=== PATIENT | female | born 1950 | race African-American/Black ===

== ENCOUNTER 2020-07-17 22:04 | Inpatient (IN) | payer BC, OTHER ==
[~2020-07-17] VITALS: Ht 170.2 cm; Wt 95.8 kg
[2020-07-17 22:07] VITALS: BP 178/94
[2020-07-17 22:24] LABS: URINE BILIRUBIN NEGATIVE (Negative); URINE BLOOD NEGATIVE (Negative); URINE CLARITY SL CLOUDY; URINE COLOR YELLOW; URINE GLUCOSE-RANDOM* NEGATIVE (Negative); URINE KETONES NEGATIVE (Negative); URINE NITRITE-REFLEX NEGATIVE (Negative); URINE PROTEIN (DIPSTICK) NEGATIVE (Negative); URINE SPECIFIC GRAVITY <= 1.005 (1.005-1.035); URINE UROBILINOGEN 0.2 E.U./dl (0.2-1.0)
[2020-07-17 22:25] LABS: URINE LEUKOCYTES-REFLEX 1+ (Negative)
[2020-07-17 22:41] LABS: BACTERIA-REFLEX 1-9 Few /HPF (None Seen); CASTS None Seen /LPF (None Seen); CRYSTALS None Seen /LPF (None Seen); MUCUS 0-3 Light strn/LPF (None Seen); SQUAMOUS >10 Many /LPF (0-3); URINE RBC 0-2 Rare /HPF (0-2); URINE WBC-REFLEX 0-5 Rare /HPF (0-5)
[2020-07-18 02:48] VITALS: BP 178/94
[2020-07-18 03:22] VITALS: BP 146/95
--- NOTE | 2020-07-18 03:57 | NUR ---
Assumed care of pt as transfer from ED @ 0230. Pt calm et cooperative this shift. Pt to be involuntary et is positive for COVID. VSWNL. Health assessment with no abnormalities noted at present time. Pt very confused et acts like she cannot stand or do anything for herself. ED reports that pt capable of standing but it was reported that she fell et was on the floor of her home for three days. Pt came to our ED via [facility] ED via pt's home. Pt was accompanied by her daughter at [facility] who also filled out one of the affidavits for the involuntary admission. Calls placed to providers seasoner hand et orders obtained. Pt is currently resting in bed with eyes open. Will continue to monitor per unit protocol.
--- NOTE | 2020-07-18 07:03 | EKG ---
[facility] [place] [address] ELECTROCARDIOGRAM REPORT Name: GENTRY MACHADO Room #: 221-P ADM IN M.R.#: [id number] Admission: 07/18/20 Attend Phys: Artur Kingston DO Discharge: Date of : 52 Report #: [id number] THIS REPORT FOR: cc: Yousif Sewell MD, MD, MD [facility] ~ THIS REPORT FOR: //name// [facility] ED Test Date: 2020-07-17 Test Time: 22:41:18 Pat Name: GENTRY MACHADO Department: Room: 221 Gender: F Heat Treat Operator: [facility] : 1950 Requested By: Krishan Lima Order Number: [id number] MD: Yousif Thompson Measurements Intervals [place] Rate: 107 P: 45 NC: 165 QRS: 27 QRSD: 88 T: 9 QT: 371 QTc: 495 Interpretive Statements Sinus tachycardia Probable left atrial enlargement Left ventricular hypertrophy Borderline T abnormalities, anterior leads Borderline prolonged QT interval Compared to ECG 06/09/2007 16:15:16 T-wave abnormality now present Sinus rhythm no longer present Electronically Signed On 07-18-2020 7:02:54 CUT OFF SAW OPERATOR METAL by Yousif Thompson [email or web address] <ELECTRONICALLY SIGNED> By: Yousif Thompson MD, FACC 07/18/20 0702 40 40 Yousif Thompson MD, FAC /EPI
[2020-07-18 07:30] VITALS: BP 151/88
[2020-07-18 10:48] LABS: ABSOLUTE NEUTROPHILS 6.4 thou/uL (1.4-8.2); BASOPHILS 0.4 % (0.0-2.0); EOSINOPHILS 3.2 % (0.0-3.0); HEMATOCRIT 35.7 % (37.0-47.0); HEMOGLOBIN 11.4 gm/dL (12.0-15.0); LYMPHOCYTES 12.9 % (24.0-44.0); MCV 81.1 fL (80.0-100.0); MONOCYTES 10.9 % (1.0-8.0); PLATELET COUNT 400 thou/uL (150-400); POLYS 72.6 % (36.0-66.0); RDW 16.5 % (10.5-14.5); WBC 8.8 thou/uL (4.0-11.0)
[2020-07-18 10:58] LABS: CALCIUM 9.5 mg/dL (8.5-10.1); CREATININE 0.8 mg/dL (0.6-1.0); POTASSIUM 3.1 mmol/L (3.5-5.1)
[2020-07-18 11:04] LABS: ALBUMIN 2.8 g/dL (3.4-5.0); TOTAL BILIRUBIN 0.4 mg/dL (0.2-1.0); TOTAL PROTEIN 7.1 g/dL (6.4-8.2)
[2020-07-18] MEDS ORDERED: CARVEDILOL3.125 MG PO (11:24)
[2020-07-18] MEDS ORDERED: METHOTREXATE 22.5 M1 PO (11:24)
[2020-07-18] MEDS ORDERED: FOLIC ACID1 MG PO (11:24)
[2020-07-18 16:55] VITALS: BP 122/73
--- NOTE | 2020-07-18 18:35 | NUR ---
Alert and orientated X4. Anxious at times r/t COVID dx. Denies SI/HI. Multiple concerns r/t meds and wanting to speak with her doctor. Calm, compliant, taking meds whole. Breath sounds clear t/o, bilaterally equal. Reg HR auscultated. Color pink with brisk capillary refill and palpable peripheral pulses. Up to bedpan and toilet with assistance. Very slow irregular gait, scared to sit on toilet stating it is too low. Daughter called this AM wanting update, pt. here on 96 hr hold. Daughter did not have privacy code, upset. Offered to have pt. call her. Privacy code given late in day. Pt. states she is having mouth pain d/t dentures, tylenol given with good results.
[2020-07-18 19:29] VITALS: BP 128/65
--- NOTE | 2020-07-19 06:33 | NUR ---
NOTED WITH CONFUSION. REFUSED MEDS. R/B EXPLAINED BUT STILL REFUSED. VSS. NO S/S ACUTE DISTRESS NOTED OR REPORTED AT THIS TIME.
[2020-07-19 07:58] VITALS: BP 133/79
--- NOTE | 2020-07-19 16:28 | H ---
[facility] [place] [address] HISTORY AND PHYSICAL Name: GENTRY MACHADO Room #: 221-P ADM IN M.R.#: [id number] Admission: 07/18/20 Attend Phys: Artur Kingston DO Discharge: Date of : 52 Report #: [id number] THIS REPORT FOR: cc: Artur Nelson MD, MD, DO ~ CC: Artur Campbell DATE OF SERVICE: 07/18/2020 INPATIENT PSYCHIATRIC EVALUATION ATTENDING PSYCHIATRIST: Artur Kingston DO. CUSTODIAL SUPERVISOR: Lima Barclay MD. REASON FOR ADMISSION: Concern for la, inability to care for self. SOURCES OF INFORMATION: Interview with the patient. Telephone call with her daughterSaskia, chart review, records from [facility]. HISTORY OF PRESENT ILLNESS: This is a 70-year-old black female. The patient has obvious symptoms of longstanding rheumatism including disfigured left upper extremity digits. The patient reports she is hungry. I helped feed her a bit, cut off her foods and she was able to take over. She reports Dr. Ben Campbell is her primary care physician. She states in the past, she has seen Dr. Dempsey, who is her psychiatrist, but not currently. She evidently works at the [email or web address] and has recently been working from home. Her daughter who called in is concerned about her both not taking psychiatric medications, not taking medications for rheumatoid arthritis. She reportedly takes methotrexate weekly for rheumatism, also recently had a UTI. She said she did not take the methotrexate while on that. In addition, the patient reports to me she used to take 5 mg of medication, when I said that were Abilify she said yes and she has not filled any psych meds in the last several months. So I have reason to believe that with her COVID-19 infection that she was sent to the SICU for. She has la at present. EKG reviewed, QTC 495, QT 371, VT interval 165 milliseconds, ventricular rate 107, sinus tachycardia. She has some LVH. PAST SURGICAL HISTORY: Fairly extensive left foot surgery 2004, hip replacement x 4, 2 on each in 1974, 1995, 1997 and 1999, total knee replacement, bilateral 1986 and 1993, fracture of leg at 11 years, surgery in 1960, cholecystectomy in 1980. [address] [address] HISTORY AND PHYSICAL Name: GENTRY MACHADO Room #: 221-P [facility] IN M.R.#: [id number] Admission: 07/18/20 Attend Phys: Artur Kingston DO Discharge: Date of : 52 Report #: [id number] PAST MEDICAL HISTORY: Rheumatoid arthritis all joints, rheumatic fever at 11 months old, iron lung for 6 months. It looks like there was a replaced hip 1995. Also, right foot surgery 1999, chronic venous insufficiency, chronic rotator cuff tear on the left. ALLERGIES: PENICILLIN AND REMICADE. SOCIAL HISTORY: No smoking, recreational drug use history. REVIEW OF SYSTEMS: CONSTITUTIONAL: Denies fever, chills, malaise, unexplained weight change. EYES: Denies eye pain, visual change or discharge. HENT: Denies hearing changes, ear drainage, ear infections, ear pain, neck pain or stiffness. RESPIRATORY: Denies cough, shortness of breath, hemoptysis or respiratory distress. CARDIOVASCULAR: Denies chest pain, chest pain with exertion or edema. GASTROINTESTINAL: Denies abdominal pain, nausea, vomiting or diarrhea. GENITOURINARY: Denies burning, frequency or dysuria. MUSCULOSKELETAL: Denies back pain, joint pain, muscle weakness or myalgias. SKIN: Denies rash. NEUROLOGIC: Denies weakness, headache or loss of consciousness. Weight 96.62 kilos. LABORATORY DATA: Reviewed. Urinalysis on 07/17/2020 was 1+ leukocyte esterase, greater than 10 epithelial cells, few bacteria, no mucus. I believe there are some labs from [facility] I need to review. She was COVID positive in the ER. Other laboratories from the ER include Hematocrit 35.7, white count 8.8, platelet count 400. Chemistry: Sodium 143, potassium 3.1, chloride 105, bicarbonate 26, anion gap 12, BUN 8, creatinine 0.8, estimated GFR 86, glucose 148, calcium 9.5, total bilirubin 0.4, AST 31, ALT 25, alkaline phosphatase 101, total protein 7.1,. COVID-19 serology was positive by PCR. She is definitely a high school graduate, I am not sure level of college education. She reports working for the [employer] a long time. I am not sure if she is or , but the vp digital marketing social media and crm will clarify that. PHYSICAL EXAMINATION: VITAL SIGNS: Temperature 36.9, pulse 79, respirations 20, BP 122/72, O2 sat 97%. MUSCULOSKELETAL: Seen in bed, so gait not tested, disfigured upper extremity digits, difficulty holding a fork. MENTAL STATUS EXAMINATION: This is a well-developed, unkempt black female, appearing nearly stated age. Attention fair. Concentration limited. Speech pushed. Thought process: Linear and goal directed. Thought content, number of [facility] [address] [place] [address] HISTORY AND PHYSICAL Name: GENTRY MACHADO Room #: 221-P ADM IN [facility]#: [id number] Admission: 07/18/20 Attend Phys: Artur Kingston DO Discharge: Date of : 52 Report #: [id number] topics focused on doctors, medication and her doctors. Denied SI, HI. Denied auditory, visual, or tactile hallucinations. Memory not formally tested. Insight limited. Judgment limited. Fund of knowledge, no greater than average. FORMULATION: A 70-year-old black female admitted for la, determined to be COVID-19 positive, so she will need enhanced isolation. DIAGNOSES: At this time, bipolar disorder, most recent episode manic, COVID-19 positive, rheumatoid arthritis, hyperlipidemia, hypertension. PLAN: Evaluate, stabilize, obtain collateral. Start Haldol 0.5 mg p.o. 3 times a day for la control. Agree with continuing folic acid and methotrexate therapy. ESTIMATED LENGTH OF STAY: 10-14 days. STRENGTHS: She is insured, family support. WEAKNESSES: Multiple morbidities. COVID-19 infection. BMI 33.1 <ELECTRONICALLY SIGNED> By: Artur Kingston DO 07/19/20 1628 1703 [id number] Artur Kingston DO /nt
[2020-07-19 16:54] VITALS: BP 151/89
--- NOTE | 2020-07-19 18:16 | NUR ---
LABILE MOOD NOTED THROUGHOUT SHIFT-WITH INCREASING LEVELS OF AGITATION,PARANOIA AFTER APPROX 1430. INITIALLY THIS AM NOTED TO BE HYPERVERBAL,SPEECH PRESSURED-CIRCUMSTANTIAL. DEMANDING AT TIMES BUT OVERALL PLEASANT-LATER IN PM ACCUSING NURSE OF "PUTTING SOMETHING IN MY FOOD-IT DOESN'T LOOK RIGHT OR TAST RIGHT AND I CAN TELL IT HAS BEEN BROUGHT IN" HAS BEEN COMPLAINTIVE REGARDING NOT BEING ABLE TO CHANGE CHANNELS ON TV-WHEN NEW REMOTE WAS OBTAINED AND FIXED WAS INITALLY HAPPY-EXPRESSING APPRECIATION TO NURSE BUT LATER IN PM STATES "I WANT THE OLD BROKEN ONE BACK YOU PROBABLY DID SOMETHING TO THIS" IS ORIENTED X3 ABLE TO ID DATE,TIME,AND AWARE SHE IS AT HOSPITAL AND NAME OF HOSPITAL. COMLIENT WITH ALL MEDICATIONS WITH THE EXCEPTION OF HALDOL STATING "I DON'T NEED THAT THERE ISN'T ANYTHING WRONG WITH MY MIND" TAKES PO FLUIDS WELL-APPETITE GOOD WITH EXCEPTION OF PM WHICH SHE REFUSED BELIEVING IT WAS "ALTERED"LUNGS SLIGHTLY DIMINSHED IN BASES-NO COUGH NOTED OR REPORTED. AFEBRILE.SMALL BM AND MULTIPLE VOIDS VIA BEDPAN-URINE CLEAR YELLOW-NO EPISODES OF INCONTINENCE THIS SHIFT. BP AT 1700 PRIOR TO SCHEDULED COREG MILDLY ELEVATED AT 148/84 APPEARS TO BE RELATED TO INCREASED AGITATION,PARANOIA DENIES ANY PAIN OR DISCOMFORT AT THIS TIME. REFUSES TO GET UP TO COMMODE OR GERICHAIR STATING "TO WEAK" BUT DOES ROLL SIDE TO SIDE IN BED AND REPOSITIONS SELF ON SIDE RELUCTANTLY WITH VERBAL QUEING. DENIES SI/HI BUT DOES STATE "IF I SAW MY DAUGHTER RIGHT NOW I DON'T KNOW WHAT I WOULD DO"
[2020-07-19 20:24] VITALS: BP 145/75
--- NOTE | 2020-07-20 05:26 | NUR ---
Assumed care of patient this pm shift. Patient alert and oriented x3-4. Patient in good spirits. Hyperverbal. Takes medications whole with thin fluids. Denies hi/si. States she has pain in her mouth. Tylenol given. Patient is a high falls risk. Falls precautions in place. Assessment shows no signs of acute distress. Patient believes that she has ordered several miscellanious items from the hospital including wipes. Became irritable with staff and would not let us change her wet bedding. We will continue to monitor per hospital policy.
--- NOTE | 2020-07-20 18:30 | NUR ---
Assumed care at shift change, alert and oriented x3-4 and forgetful. VSS and afebrile. Refused to change position through out the day, and agree on getting her cleaned. Paient is incontinent of B&B, cleaned and instructed patient to keep external femal cath inplace. Assessment as documented and will continue with POC.
--- NOTE | 2020-07-20 20:54 | NUR ---
Assumed care on 07/20/20 @ 19:30, in bed, reports that she does not like to walk to the toilet because she is a high fall risk. When asked if she can walk, she says she was told never to walk b/c of (shows her fall risk bracelet) and says she wants to use a bed dc to toilet. Reports is tired, and has pain in her mouth. HRRR, Lungs Diminished but clear on room air. ABD N with x2bm today. Takes meds whole with room temp water. Will continue to monitor as per Senior Behavior Protocol for safety and comfort.
[2020-07-21 04:56] VITALS: BP 117/57
[2020-07-21 05:50] LABS: CALCIUM 9.2 mg/dL (8.5-10.1); CREATININE 0.6 mg/dL (0.6-1.0); POTASSIUM 3.5 mmol/L (3.5-5.1)
[2020-07-21 15:25] VITALS: BP 141/82
--- NOTE | 2020-07-21 15:36 | NUR ---
ASTRONOMY INSTRUCTOR attempt x2 to call patient's in room phone to complete recreation therapy assessment. No success.
--- NOTE | 2020-07-21 19:41 | NUR ---
LABILE MOOD THIS SHIFT-IRRITABLE AND DEMANDING AT TIMES-REFUSED AM HALDOL BUT DID TAKE 1500 DOSE AFTER BEING INFORMED WOULD RECEIVE IM IF PO REFUSED. LUNG SOUNDS [id number] COUGH NOTED OR REPORTED-DOES HAVE RASPY VOICE-HOARSE BUT DENIES THROAT PAIN/DISCOMFORT. DOES REPORT MOUTH PAIN RATED A 5 ON 1-10 SCALE-TYLENOL 650MG PO PRN PER ORDER WITH VERBALIZED GOOD RELIEF. APPETITE GOOD-VOIDING PER COMMODE WITH ASSIST OF 2-3 OR VIA BEDPAN. ORIENTED X3. SMALL BM PER COMMODE-O2 SAT 99 PERCENT ON RA
--- NOTE | 2020-07-22 02:45 | NUR ---
07-21-20 CARE TRANSFERRED 1899. PT AAO4, VSS, RR EVEN AND NONLABORED ON RA. PT REPORTS PAIN IN MOUTH. PT WAS COMBATIVE DURING MEDICATION ADMIN, BUT LATER COMPLIANT WITH ALL MEDICATION. PT PAIN HAS BEEN MANAGED WITH PO MEDICATION. PT DENIES SI/HI. CATH IN PLACE URINE LIGHT YELLOW, NO SEDIMENT AND ZERO FOUL ODOR, 800ML EMPTY. ZERO S/S OF ACUTE DISTRESS, PT WILL CONTINUE TO BE MONITOR.
[2020-07-22 07:28] VITALS: BP 123/78
[2020-07-22 20:06] VITALS: BP 135/71
--- NOTE | 2020-07-23 06:12 | NUR ---
ASSUMED PT'S CARE THIS PM SHIFT. ALERT AND ORIENTED. CONFUSED. PT WAS CALM AND COOPERATIVE WITH CARE. TOOK MEDS WHOLE. BEDPAN FOR VOIDING AND BM. NO BM NOTED TODAY. THINKS SHE'S GOING HOME TODAY. ON 96 HR HOLD TILL 07/25/20. CALL LIGHT WITHIN REACH. HOURLY ROUNDINGS MADE. WILL CONTINUE TO MONITOR.
--- NOTE | 2020-07-23 09:24 | NUR ---
RECEIVED ORDERS FOR OT EVAL AND TREAT ALONG WITH MIRI EVALUATION. DUE TO PT. IN ENHANCED ISOLATION FOR COVID +, WILL NOT BE ABLE TO CARRY OUT FORMAL MIRI EVLAUATION AT THIS TIME. IF ISOLATION IS DISCONTINUED WHILE PT. IS ADMITTED, REQUEST NEW ORDERS FOR MIRI EVALUATION. PLEASE SEE OT EVALUATION, BRIEF, FOR INFORMATION REGARDING FUNCTIONAL COGNITION. OT WILL D/C ORDER FOR MIRI.
[2020-07-23 10:03] VITALS: BP 127/80
[2020-07-23 13:06] VITALS: BP 127/80
--- NOTE | 2020-07-23 13:41 | NUR ---
[facility], PATIENT IN ROOM AWAKE QUIET. PATIENT ATE BREAKFAST TOOK MEDCATION WITHOUT INCIDENCE, PATIENTS ABDOMEN SOFT ROUND. BOWEL SOUNDS PRESENT LUNGS CLEAR PATIENT DENIES SI/HI/AH/VH AT PRESENT. PATIENT IS INDEPENDENT WITH EATING DRINKING AND TRIES TO CLEAN SELF WITH WIPES. SHE WAS SOMEWHAT IRITABLE WHEN DYNAMOTOR REPAIRER WAS CLEANING HER UP AND COMPLAINED WE DID NOT KNOW HER MEDICAL ISSUES. PATIENT LATER CALMED DOWN WILL CONTINUE TO MONITOR PATIENT FOR SAFETY AND BEHAVIORS.
--- NOTE | 2020-07-23 17:26 | NUR ---
OTTONIEL and Dr. Andrews participated in an phone call with the Pt's daughter, emory [phone]. Emory was given and update and informed the Pt is not willing to complete a DPOA. Emory was educated about guardianship. Emory was informed that the Pt would benefit from the family pursuing if Pt is unwilling to assign a DPOA. Dr. Martinez did inform of his recommendation for LTC placement. Skilled placement was also discussed. OTTONIEL will continue to follow. OTTONIEL will send out referrals for custodial, if unable to get a skilled placement Pt will return home with home health services.
[2020-07-23 21:04] VITALS: BP 133/70
[2020-07-23 21:08] VITALS: BP 133/70
--- NOTE | 2020-07-24 05:51 | NUR ---
ASSUMED PT'S CARE @ 1900. PT ALERT AND ORIENTED. SOME CONFUSION. PT WAS CALM AND COOEPRATIVE WITH CARE. TOOK MEDS GIVEN. PRN TYLENOL GIVEN PER PT'S REQUEST FOR OVERALL JOINT PAIN. PT WAS BOTH CONTINENT AND INCONTINENT OF BLADDER THIS SHIFT. PT'S SISTER ANTHONY CALLED TO SPEAK WITH, PT SLEEP AT THAT TIME. MS CRUZ VOICED SHE'LL CALL BACK IN THE AM. FALL PRECAUTION IN PLACE. CALL LIGHT WITHIN REACH. WILL CONTINUE TO MONITOR.
[2020-07-24 07:51] VITALS: BP 144/59
--- NOTE | 2020-07-24 17:50 | NUR ---
SW [facility] [phone] [facility] [phone] [place] [phone] [facility] [phone] [facility] [phone]
[2020-07-24 19:55] VITALS: BP 99/62
--- NOTE | 2020-07-25 04:58 | NUR ---
ASSUMED PT'S CARE AT ABOUT 1900. ALERT AND ORIENTED. SOME CONFUSION AND DELUSION. PT WAS CALM AND COOPERATIVE. SEEMED HAPPY, TALKING ABOUT GOING HOME TODAY. PER CM NOTE, REFERALS HAVE BEEN FAXED, NOTE HOWEVER DID NOT INDICATE ANY ACCEPTANCE YET. FALL RECAUTION IN PLACE. CALL LIGHT WITHIN REACH. WILL CONTINUE TO MONITOR.
[2020-07-25 07:27] VITALS: BP 124/58
--- NOTE | 2020-07-25 10:04 | NUR ---
Care assumed of patient at 0800: Patient sitting in bed at start of shift. Patient alert and oriented x3. Denies SI/HI/AH/VH. Patient reports that she is happy because she is going home today. Reports pain to bilateral hands and requested PRN Ibuprofen, declined PRN Tylenol. Took medication whole without difficulty. Patient calm and cooperative. Currently working with OTTONIEL on [employer] paperwork.
--- NOTE | 2020-07-25 10:55 | NUR ---
Pt scored 17/30 on the SLUMS
--- NOTE | 2020-07-25 12:30 | NUR ---
OTTONIEL sent referral to the following [facility] [phone] [facility] [phone]
--- NOTE | 2020-07-25 12:52 | NUR ---
Pt completed DPOA paperwork. SW emailed a copy to the Pt's DPOA document and enactement letter to Nina Lindquist at [email or web address] OTTONIEL also filed a copy in the the Pt's chart
--- NOTE | 2020-07-25 15:52 | NUR ---
DENIES PAIN/DISCOMFORT DURING AM ASSESSMENT-LATER REQUESTED PRN IBUFROFEN FOR RIGHT HIP PAIN-IBUPROFEN 600MG GIVEN PO PRN WITH VERBALIZED GOOD RESULTS. APPETITE GOOD. VOIDING PER BEDPAN. DID WORK WITH OCCUPATIONAL THERAPY ON ADLS. COMPLIENT WITH MEDS.NO COUGH,AFEBRILE-LUNGS CLEAR. NO SKIN BREAKDOWN. VS STABLE-O2 SATS 98 PERCENT ON RA.
--- NOTE | 2020-07-25 17:03 | NUR ---
OTTONIEL spoke with Shar at [facility]. She infomed they did not have beds today but may have a bed on Tuesday. OTTONIEL will follow up on Tuesday
[2020-07-25 20:04] VITALS: BP 124/57
--- NOTE | 2020-07-26 01:46 | NUR ---
ASSESSMENT: PT REMAIN ALERT AND ORIENT TIMES THREE. FORGETFUL AT TIMES. C/O HAND JOINT PAIN, PRN PAIN MEDS GIVEN. ABLE TO TURN SELF IN BED. USE OF BEDPAN FOR URINATION. NO BM THUS FAR. VSS, AFEBRILE. SLOW PROGRESS TOWARDS DC GOALS, WILL CONTINUE TO MONITOR.
[2020-07-26 07:55] VITALS: BP 134/82
[2020-07-26 08:00] VITALS: BP 134/82
--- NOTE | 2020-07-26 09:20 | NUR ---
PT WATCHING TV IN ROOM. PT SAYS HAPPY TUESDAY AND GREATFUL TO BE ALIVE. PT HAS GOOD SPIRITS THIS AM. PT LUNGS CLEAR WITH NON-PRODUCTIVE COUGH. PT USED BED QUIGLEY TO VOID. PT REFUSED TO USE BSC. PT STATED SHE IS GETTING STRONGER. PT NEEDING HELP WITH OPENING ITEMS ON HER TRAY AND PUTTING STRAWS INTO DRINKS. SHE HAS CRIPPLED HANDS DUE TO RA. PT ALSO STATED SHE HAS HX OF POLIO ALSO. PT ABLE TO TURN IN BED WITHOUT ANY ASSISTANCE. PT STATED SHE HAS A SORE INSIDE MOUTH FROM DENTURES. PT SHOWED THIS GUARDIAN AD LITEM HER SORE AT FRONT OF GUM. PT ALSO DRINKS WARM WATER NOT COLD DUE TO HER SORE. PT STATED SHE WANTS TO GO HOME TODAY AND THE DRHilda SAID SHE COULD GO. PT LBM 07/25. PT TOOK MEDS WHOLE, JUST WANTED TO KNOW WHAT EACH ONE WAS. PT STATED SHE TAKES 1000MG OF FOLIC ACID A DAY, AND HALDOL EVERY 6 HRS. SHE HAS HALDOL SCHEDUALED BID NOT EVERY 6 HRS. SHE SAYS SHE TAKES ONLY ONE PILL OF HALDOL. TOLD PT THAT ITS BID AND ITS 2MG TWICE A DAY. SHE UNDERSTOOD JUST CONFUSED ABOUT DOSES OF MEDS.
--- NOTE | 2020-07-26 09:30 | NUR ---
PT GETTING LOVINOX SQ FOR DVT PROFILACTIC PT STATED IF SHE TAKES THE HALDOL WHY DOES SHE GET A SHOT. HAD TO EXPLAIN THAT SHE IS GETTING IT TO PREVENT BLOOD CLOTS.
--- NOTE | 2020-07-26 12:19 | NUR ---
SW sent referrals to the following: [facility] [phone] [facility] [place] [phone] [place] [facility] [phone] [facility] [address] [phone]
--- NOTE | 2020-07-26 14:32 | NUR ---
ADM TYLENOL 325MG 2 TABS PO FOR PAIN TO HANDS OF PLUS 10. PT TOOK MEDS WHOLE IN WARM WATER DUE TO HER SORE ON HER GUM. PT COMBING HAIR WITH BRUSH. PT STATED SHE IS GOING TO A FACILITY FOR REHAB FOR 2 WEEKS. PT STATED SHE HAS POLIO AND RA. SHE STATED SHE WAS BORN WITH RA. SHE SAID SHE HAS A 51 YEAR OLD DTR, GRANDAUGHTER AND 5 YR OLD GREAT-GRANDCHILD. SHE WANTED TO BE LEFT ALONE AFTER SHE TALKED TO THIS SENIOR DATABASE ENGINEER ABOUT HER PERSONAL HEALTH ISSUES.
[2020-07-26 16:34] VITALS: BP 131/110
[2020-07-26 20:20] VITALS: BP 124/64
--- NOTE | 2020-07-27 04:07 | NUR ---
ASSESSMENT: PT REMAIN ALERT AND ORIENT TIMES THREE. PRN PAIN MEDS GIVEN FOR RODDY ARM AND HAND PAIN. REMAINS IN ENHANCED PREC FOR POSITIVE COVID. TOLERATING RA. VSS, AFEBRILE. PT URINATED PER BED QUIGLEY. DID REQUEST A BRIEF BUT WITH BRIEF ON PT WOULD URINATE SEVERAL TIMES BEFORE RINGING OUT FOR ASSISTANCE. THE BRIEF WAS TAKEN AWAY TO THE RISK OF SKIN BREAK DOWN. SLOW PROGRESS TOWARDS DC GOALS, WILL CONTINUE TO MONITOR.
[2020-07-27 09:25] VITALS: BP 134/60
--- NOTE | 2020-07-27 15:20 | NUR ---
OTTONIEL sent referrals to the following: [facility] [phone] [place] [phone] [facility] [phone] [facility] [phone]
--- NOTE | 2020-07-27 17:27 | NUR ---
PT IS AOX3-4, FORGERFUL AT TIMES. VSS, PT'S PAIN IS CONTROLLED WITH OTC PAIN ANALGESIC. PT REMAINS ON COVID 19 PRECAUTIONS. INCONTINENT OF B&B, USED BEDPAN. PT CALLS APPROPRIATELY, CALL LIGHT IN REACH, WILL CONTINUE TO MONITOR.
[2020-07-27 19:59] VITALS: BP 123/67
--- NOTE | 2020-07-28 04:48 | NUR ---
A&Ox2 Confusion noted. Preocupation with dentures noted. Reports pain in mouth secondary to dentures. Pain in hands as well as joint deformity noted. Takes meds whole with warm water, however questions each medication and what dose she took the day before. Pain meds provided as needed for hands and mouth pain. Positive for Covid-19. Heavy wetter, incontinent of bladder, incontinent care provided with complete change of sheets repeatadly. Not aware of the time of night, and at 0300 says that her children will be calling. Reoriented to time of night, and Continues to insist that a call is comming any minute. Will continue to monitor for safety and comfort.
[2020-07-28 07:56] VITALS: BP 140/78
--- NOTE | 2020-07-28 13:00 | NUR ---
Assess due to length of stay. Admitted for SBH, COVID+. Hx bipolar disorder with la. Pt eating 100% of meals consistently. BMI 33. Consider low nutrition risk.
--- NOTE | 2020-07-28 18:31 | NUR ---
ASSUMD CARE AT CHANGE OF SHIFT. RECENT FALL AT HOME.ALERT X3-4, FORGETFUL. REPORTS HER DENTURES GIVE HER MOUTH SORES. DENIES SOB, DENIES CHEST PAIN, HEAVY WETTER. NO BM NOTED AT THIS TIME. TAKES MEDIATION WHOLE. FALL PRECAUTIONS IN PLACE. DEFORMED HAND JOINTS. SET UP FOR MEALS. CALLS FOR ASSISTANCE.
[2020-07-28 20:25] VITALS: BP 122/60
[2020-07-29 03:57] VITALS: BP 125/65
--- NOTE | 2020-07-29 07:34 | NUR ---
progress pt a/o x3 able to verbalize needs.calls frequently for repositioning and worrying about external catheter which is draining large amount of clear yellow urine. pt drinking soda with no difficulties. denies pain continue poc.
[2020-07-29 08:39] VITALS: BP 126/67
[2020-07-29 09:12] VITALS: BP 126/72
--- NOTE | 2020-07-29 13:06 | NUR ---
OTTONIEL spoke with Angi Liz from [facility]. Angi informed they would accept the Pt but had to get authorization from the Pt's insurance. Angi informed the Pt need to have case mangement through the insurance company prior to authorization of SNF. Reuben requested OTTONIEL to call and request case management. OTTONIEL called [facility] and put in a request for case management for the Pt. OTTONIEL called Pt's daughter, Saskia and informed about the issues with the Pt's insurance. OTTONIEL also provided information to [facility] to Saskia. Saskia also informed the family would be willing to private pay until insurance kicked in. Pt will d/c to [facility] on 07/29/2020 @1600
[2020-07-29] MEDS ORDERED: ATORVASTATIN CA10 MG PO (13:19)
[2020-07-29] MEDS ORDERED: DIVALPROEX SOD500 M1 PO (13:20)
[2020-07-29] MEDS ORDERED: HALOPERIDOL 1 MG1 MG PO (13:20)
[2020-07-29] MEDS ORDERED: MELATONIN1 MG PO (13:21)
[2020-07-29] MEDS ORDERED: MELATONIN5 M1 PO (13:21)
[2020-07-29] MEDS ORDERED: LITE COAT ASPI325 MG PO (13:22)
--- NOTE | 2020-07-29 16:58 | NUR ---
Alert and orientated X4. Calm, cooperative and compliant. Conversing with staff. Denies SI/HI. Breath sounds clear. Reg HR auscultated. Color pink with brisk capillary refill and palpable peripheral pulses. Voiding per external cathetar, clear yellow. States she had BM yesterday. Active bowel sounds over soft, rounded abdomen. Multiple joint deformities in hands and feet. Stood with assist X2 and ambulated with walker to , steady gait. Report called to facility early afternoon. DCed per to [facility] at approximately 1610 after signing DC instructions. Daughter Saskia Vela notified of pending transfer, verbalized consent.
--- NOTE | 2020-07-29 17:22 | NUR ---
RECEIVED CALL FROM [facility] REQUESTING PT/OT PARTICIAPTION AND THIS WAS FAXED TO THEM REQUESTED AT [phone].
--- NOTE | 2020-07-31 07:53 | D ---
[facility] [place] [address] DISCHARGE SUMMARY Name: GENTRY MACHADO Room #: 221-P [facility] M.R.#: [id number] Admission: 07/18/20 Attend Phys: Artur Kingston DO Discharge: 07/29/20 Date of : 52 Report #: [id number] THIS REPORT FOR: cc: Ben Kingston,Artur Turcios DO ~ DATE OF SERVICE: 07/29/2020 INPATIENT PSYCHIATRIC DISCHARGE SUMMARY ATTENDING PSYCHIATRIST: Artur Kingston DO SUPERVISOR COUNSELING AND GUIDANCE: Artur Blevins MD at the time of discharge. DISCHARGE DIAGNOSIS: Bipolar 1 disorder, most recent episode manic, severe, improved. ADDITIONAL MEDICAL COMORBIDITIES: Include rheumatoid arthritis, hypokalemia, COVID-19 pneumonitis. DISCHARGE PLAN: The patient is discharging to [facility] for nursing home stay due to deconditioning and her la and rheumatism. Psychiatric and medical care to be provided by receiving facility. DISCHARGE MEDICATIONS: As follows: Atorvastatin 10 mg p.o. at bedtime, Depakote ER 1000 mg p.o. at bedtime, Haldol, melatonin 6 mg p.o. at bedtime, aspirin 325 mg p.o. daily for 14 days that is for COVID and coagulopathic prophylaxis, Haldol is for psychosis as well, Depakote was for la, methotrexate 8 mg p.o. weekly for rheumatism, carvedilol 3.125 mg p.o. b.i.d. with meals, also she is resuming methotrexate. It was noticed as stop, but folic acid should be continued. The patient should be on a regular diet. ACTIVITY LEVEL: As tolerated. She is using rolling walker assistance with bathing. PERTINENT LABORATORIES: Most recent H and H from 07/18/2020, 11.4 and 35.2, white count 8.8, platelet count 400. D-dimer 4.24 that is due to COVID-19. Chemistry: Sodium 142, potassium 3.5, chloride 107, bicarbonate 26, anion gap 9, BUN 10, creatinine 0.6, glucose 108, calcium 9.2. Ferritin 206. LD total 224. CRP 32.9. Albumin low at 2.8. Urine drug screen with Depakote level 28 on and we increased it, elected not to have a followup Depakote level that should be done outpatient. COVID-19 PCR on the was positive that is why she spent her stay in SICU, which is where patients are placed at this point during the epidemic. REASON FOR ADMISSION: Back on the or so, the patient was sent from [address] [address] DISCHARGE SUMMARY Name: GENTRY MACHADO Room #: 221-P [facility] IN M.R.#: [id number] Admission: 07/18/20 Attend Phys: Artur Kingston DO Discharge: 07/29/20 Date of : 52 Report #: [id number] [facility] after a fall at home. She was found by her daughter on the ground for 3 days. She was acting aggressive and confused with the daughter after a fall. HOSPITAL COURSE: The patient was admitted to [facility]. [facility] done a considerable medical stabilization on her. She was quite manic, thus we treated with Depakote and Haldol after several days of simmer down. The patient did have a little SLUMS score, I believe it was . I do believe she has either mild cognitive impairment or possibly a mild dementia. I recommended the patient not live at home at this time, there was not preparation in place for long-term care placement. The patient wanted to go to nursing home stay. During the stay, she made her granddaughter, María, who lives in [place], her DPOA. The patient improved considerably with remaining with Zoloft in the ED with care. VITAL SIGNS: On the day of discharge, temperature 36.5, pulse 58, respirations 18, BP 126/72, O2 sat 98%. The patient can ambulate with assistance. I did not test her today. DISCHARGE MENTAL STATUS EXAMINATION: This is a well-developed, fairly nourished black female, appearing stated age. Attention fair. Concentration fair. Speech is normal rate, volume and tone. Thought process is linear and goal directed. Thought content focused on discharge. 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 mood/affect, euthymic happy, congruent Denied SI or HI, down triggers or tactile hallucinations. Memory not formally tested on discharge. Insight limited. Judgment limited. Fund of knowledge diminished. PROGNOSIS: For this patient is guarded due to her rheumatism, cognitive issues and la and in my opinion, requires 24-hour assistance at this time. <ELECTRONICALLY SIGNED> By: Artur Kingston, 07/31/20 [phone] Artur Kingston, /nt
== END 2020-07-29 16:10 | DRG 885 ==
LOC: ER 22:04 → EROBS 07-18 01:30 → SICU 07-18 01:30
PROVIDERS: Emergency Medicine; Internal Medicine; ADMIT Psychiatry & Neurology Psychiatry; ATTEND Psychiatry & Neurology Psychiatry
DX: F31.13 Bipolar disorder, current episode manic without psychotic features, severe (principal); U07.1 COVID-19; J12.89 Other viral pneumonia; M06.9 Rheumatoid arthritis, unspecified; E87.6 Hypokalemia; E78.5 Hyperlipidemia, unspecified; F41.9 Anxiety disorder, unspecified; Z96.649 Presence of unspecified artificial hip joint; Z96.653 Presence of artificial knee joint, bilateral; Z88.0 Allergy status to penicillin; Z90.49 Acquired absence of other specified parts of digestive tract; Z88.8 Allergy status to other drugs, medicaments and biological substances; F03.90 Unspecified dementia, unspecified severity, without behavioral disturbance, psychotic disturbance, mood disturbance, and anxiety
CPT/HCPCS: 15000